=== PATIENT | female | born 1955 | race Caucasian/White ===

== ENCOUNTER 2018-04-17 16:28 | Emergency (ER) | payer BC ==
[~2018-04-17] VITALS: Ht 165.1 cm; Wt 72.6 kg
[2018-04-17 18:15] VITALS: BP 132/88
== END 2018-04-17 18:17 | disposition home or self-care (01) ==
LOC: ER 16:31
DX: S42.452A Displaced fracture of lateral condyle of left humerus, initial encounter for closed fracture (principal); W19.XXXA Unspecified fall, initial encounter; Y93.89 Activity, other specified; Y92.89 Other specified places as the place of occurrence of the external cause; Y99.8 Other external cause status
CPT/HCPCS: 73080; A4663

== ENCOUNTER 2023-09-20 11:00 | Emergency (ER) | payer BC, MEDICARE ==
[~2023-09-20] VITALS: Ht 167.6 cm; Wt 77.1 kg
[2023-09-20 11:17] VITALS: O2SAT 93
[2023-09-20] MEDS ORDERED: IPRATROPIUM BROMIDE 0.5 MG/2.5 ML NEBU ONE (11:32)
[2023-09-20] MEDS ORDERED: ALBUTEROL SULFATE 2.5 MG/3 ML NEBU ONE (11:32)
[2023-09-20] MEDS: IPRATROPIUM BROMIDE 0.5 MG/2.5 ML NEBU NEB ONE (11:40)
[2023-09-20] MEDS: ALBUTEROL SULFATE 2.5 MG/3 ML NEBU NEB ONE (11:40)
[2023-09-20 11:45] LABS: BASOPHILS % (AUTO) 0.3 % (0.0-2.0); HEMATOCRIT 40.4 % (31.2-41.9); HEMOGLOBIN 13.9 g/dL (10.9-14.3); LYMPHOCYTES # (AUTO) 0.8 K/uL (0.8-4.8); LYMPHOCYTES % (AUTO) 8.4 % (20.5-51.5); MEAN CORPUSCULAR HEMOGLOBIN 31.4 uug (24.7-32.8); MEAN CORPUSCULAR HGB CONC 34 g/dL (32.3-35.6); MEAN CORPUSCULAR VOLUME 91.3 fL (75.5-95.3); MONOCYTES # (AUTO) 0.5 K/uL (0.1-1.30); MONOCYTES % (AUTO) 5.2 % (0.0-11.0); NEUTROPHILS # (AUTO) 8.2 K/uL (1.8-8.9); NEUTROPHILS % (AUTO) 86.1 % (38.5-71.5); PLATELET COUNT (AUTO) 245 K/uL (179-408); RED BLOOD CELL COUNT(AUTO) 4.42 MIL/uL (3.63-4.92); RED CELL DISTRIBUTION WIDTH 12.8 % (12.3-17.7); WHITE BLOOD COUNT (AUTO) 9.5 K/uL (3.8-11.8)
[2023-09-20] MEDS ORDERED: predniSONE 50 MG TABLET ONE (11:53)
[2023-09-20] MEDS: predniSONE 50 MG TABLET PO ONE (11:54)
[2023-09-20 11:59] LABS: DIFFERENTIAL COMMENT 1
[2023-09-20 12:21] LABS: ALANINE AMINOTRANSFERASE 27 U/L (14-59); ALBUMIN 3.9 g/dL (3.4-5.0); ALKALINE PHOSPHATASE 83 U/L (50-136); ASPARTATE AMINOTRANSFERASE 21 U/L (15-37); BILIRUBIN,DIRECT 0.2 mg/dL (0.0-0.2); BILIRUBIN,TOTAL 0.7 mg/dL (0.2-1.0); CALCIUM 9.2 mg/dL (8.5-10.1); CARBON DIOXIDE 27 mmol/L (21-32); CHLORIDE 95 mmol/L (98-107); CREATININE 0.9 mg/dL (0.6-1.3); GLUCOSE 135 mg/dL (74-106); NT-PRO BNP 80 pg/mL (0-125); POTASSIUM 4.1 mmol/L (3.5-5.1); SODIUM SERUM 132 mmol/L (136-145); TOTAL PROTEIN, SERUM 9.2 g/dL (6.4-8.2); UREA NITROGEN, BLOOD 18 mg/dL (7-18)
[2023-09-20] MEDS ORDERED: ALBU8.5H8 INH (12:44)
[2023-09-20] MEDS ORDERED: PRED50TA PO (12:44)
[2023-09-20] MEDS ORDERED: AZIT500T PO (12:44)
== END 2023-09-20 12:56 | disposition home or self-care (01) ==
LOC: ER 11:00
DX: J18.9 Pneumonia, unspecified organism (principal); Z79.899 Other long term (current) drug therapy; Z60.2 Problems related to living alone
CPT/HCPCS: 99285; 71045; 80076; 80048; 83880; 85025; 85379; 87040 ×2; 84484; 36415; 93005; 94640; 83605; J7512; A4606; A4663; J3590